=== PATIENT | male | born 1945 | race Caucasian/White ===

== ENCOUNTER 2022-02-28 07:26 | Day surgery (SDC) | payer OTHER ==
[~2022-02-28] VITALS: Ht 175.3 cm; Wt 98.2 kg
[~2022-02-28 07:26] MED LIST: AMLO5 PO; ATOR40TA PO; Aspir 8181 MG PO; Avodart0.5 MG GT; Flonase 0.05% N16 GM; HYDCHL25 PO; METO25ER PO; RAMI5 PO; TAMS.4ER PO; Zithromax Tri-500 MG PO; [UNRECOGNIZED DRUG - OTHER] PO
[2022-02-28] MEDS ORDERED: CLOP75 PO (11:04)
--- NOTE | 2022-02-28 13:38 | NUR ---
PT UP TO BATHROOM. DISCHARGE HAS BEEN REVIEWED WITH PT AND , BOTH VERBALIZE UNDERSTANDING OF INSTRUCTIONS. PT GETTING DRESSED WITH ASSIST FROM .
--- NOTE | 2022-02-28 13:57 | NUR ---
PT DRESSED WITH ASSIST FROM . TR BAND REMOVED AND SITE CLEANSED, CLOTH DOT PLACED. SALINE LOCK REMOVED WITH CATHETER INTACT. PT TO PRIVATE VEHICLE PER W/C WITH ONE STAFF. ARM BOARD PLACED TO R ARM PRIOR TO DISCHARGE.
== END 2022-02-28 14:00 | disposition home or self-care (01) ==
LOC: MHTC 07:26
DX: I25.10 Atherosclerotic heart disease of native coronary artery without angina pectoris (principal); I47.29 Other ventricular tachycardia; Z79.82 Long term (current) use of aspirin
CPT/HCPCS: 76937; 85347; 92978; 93454; 99152; 99153; A9270; C1725; C1753; C1769; C1874; C1887; C1894; C9600; J1644; J2250; J3010; J7030; J7050; Q9967

== ENCOUNTER 2025-03-30 08:58 | Day surgery (SDC) | payer OTHER ==
[2025-03-30] VITALS (27 sets, daily range): BP systolic 102–158; BP diastolic 52–97
[~2025-03-30] VITALS: Ht 175.3 cm; Wt 97.2 kg
[~2025-03-30 08:58] MED LIST changes: +CLOP75 PO
--- NOTE | 2025-03-30 09:47 | NUR ---
Ambulatory in Day Surgery History, Chart, Medications and Allergies reviewed before start of procedure. Pre-Op teaching done. Pt verbalizes understanding. Patient States Post-Procedure ride home has been arranged.
--- NOTE | 2025-03-30 11:18 | NUR ---
03/30/25 1118 Mickey Mccain CONFIRMED AND REVIEWED H&P, MEDCICATIONS, ALLERGIES, MEDICAL HISTORY, RESPIRATORY HISTORY, VITAL SIGNS, 3-LEAD EKG, CONSENTS, AND PHYSICIAN ORDERS. PATIENT CONFIRMS NPO STATUS AND AGREES WITH SCHEDULED PROCEDURE. MONITOR INTACT WITH CONTINUOUS PULSE OXIMETRY, CAPNOGRAPHY, 3-LEAD EKG, INTERMITTENT BP. SUPPLEMENTAL O2 TO BE TITRATED THROUGHOUT PROCEDURE TO MAINTAIN O2 SATURATION ABOVE 90%. PATIENT DETERMINED TO BE ASA APPROPRIATE FOR PROPOFOL SEDATION PRIOR TO START OF PROCEDURE BY DR. WILSON. LOANER SCOPE USED, YELLOW/GREEN [id number].
--- NOTE | 2025-03-30 12:31 | NUR ---
Patient up to Ambulate independently. Gait steady. Discharge instructions reviewed with patient. Patient verbalizes understanding. Copy given to patient to take home, [facility]. Patient States Post-Procedure ride home has been arranged. Discharged via wheelchair to private car for ride home. PT DENIES PAIN,N/V,SOB,CP. REPORTS READY TO GO HOME.
== END 2025-03-30 12:31 | disposition home or self-care (01) ==
LOC: ORSCMMR 08:58 → ORD 10:30 → ORSCMMR 10:30 → ORD 13:00
PROVIDERS: Family Medicine
PROC: 0DBL8ZX Excision of Transverse Colon, Via Natural or Artificial Opening Endoscopic, Diagnostic (ICD-10-PCS; principal; 2025-03-30 10:30)
PROC: 0DBM8ZX Excision of Descending Colon, Via Natural or Artificial Opening Endoscopic, Diagnostic (ICD-10-PCS; principal; 2025-03-30 10:30)
PROC: 0DBK8ZX Excision of Ascending Colon, Via Natural or Artificial Opening Endoscopic, Diagnostic (ICD-10-PCS; principal; 2025-03-30 10:30)
PROC: 3E0H8KZ Introduction of Other Diagnostic Substance into Lower GI, Via Natural or Artificial Opening Endoscopic (ICD-10-PCS; principal; 2025-03-30 10:30)
DX: Z12.11 Encounter for screening for malignant neoplasm of colon (principal); D12.2 Benign neoplasm of ascending colon; K63.5 Polyp of colon; I10 Essential (primary) hypertension; E78.5 Hyperlipidemia, unspecified; N40.0 Benign prostatic hyperplasia without lower urinary tract symptoms; Z79.899 Other long term (current) drug therapy
CPT/HCPCS: 88305; J2704; J7120